=== PATIENT | female | born 1960 | race Two or more races ===

== ENCOUNTER 2017-04-18 01:30 | Emergency (ER) | payer OTHER ==
[~2017-04-18] VITALS: Ht 160 cm; Wt 64.5 kg
[~2017-04-18 01:30] MED LIST: ASPI-1182 PO; GLUC-198 PO; MULT-248 PO; VITA400C73 PO; VITAD1000 PO; [UNRECOGNIZED DRUG - OTHER] PO; [UNRECOGNIZED DRUG - OTHER] PO
[2017-04-18 01:35] VITALS: BP 150/82
[2017-04-18] MEDS ORDERED: ACETAMINOPHEN/CODEINE 300-30 MG TABLET PO ONE (03:15)
[2017-04-18] MEDS ORDERED: GENTAMICIN SULFATE 0.3% OPHTHALMIC SOLUTION 5 ML OU ONE (03:15)
[2017-04-18] MEDS ORDERED: CEPHALEXIN MONOHYDRATE 500 MG CAPSULE PO ONE (03:15)
== END 2017-04-18 04:14 | disposition home or self-care (01) ==
LOC: EMS 01:31
DX: H10.33 Unspecified acute conjunctivitis, bilateral (principal); J06.9 Acute upper respiratory infection, unspecified; I10 Essential (primary) hypertension; Z79.82 Long term (current) use of aspirin
CPT/HCPCS: 99284